=== PATIENT | female | born 1955 | race Asian ===

== ENCOUNTER 2017-06-23 12:51 | Emergency (ER) | payer OTHER ==
--- NOTE | 2017-06-23 14:40 | RAD ---
Indication: LEFT shoulder pain and decreased range of motion since yesterday. Comparison: No relevant prior exams available on the [facility] PACS for comparison. Technique: Internal and external rotation AP and scapular Y views LEFT shoulder Report: Normal acromioclavicular and glenohumeral joint alignment. No significant glenohumeral or acromioclavicular joint arthropathic change evident. Negative for fracture. Negative for stigmata of calcific tendinopathy. Unremarkable soft tissue contours. IMPRESSION: Negative exam.
--- NOTE | 2017-06-23 14:42 | RAD ---
Indication: LEFT shoulder pain radiating to the elbow. Comparison: No relevant prior exams available on the [facility] for comparison. Technique: AP, open-mouth odontoid, lateral, and oblique views cervical spine. Report: Straightening relative to normal cervical lordosis. Negative for subluxation at any level. Negative for fracture. Minimal vertebral endplate osteophytosis at C4-C5 through C6-C7 without significant disc space narrowing. The oblique views are negative for osseous foraminal stenosis. Unremarkable prevertebral soft tissue contours. IMPRESSION: Straightening relative to normal cervical lordosis and minimal multilevel degenerative spondylosis.
--- NOTE | 2017-06-23 15:06 | UC ---
Upper Extremity HPI - HPI Summary HPI Summary: Patient presents with an unremarkable past medical history. She presents today with complaints of non-traumatic left shoulder and arm pain. She denies any new activity that would explain the shoulder pain. She states the pain started yesterday. She states it hurts from the top of the shoulder and radiates to the elbow. The pain is worse with movement, and improves if she raises it and moves it in a tulalip. She denies any numbness or tingling. She denies any chest pain, dyspena, sweating, nausea, weakness, or fatigue. She denies any heart problems. - History of Current Complaint Chief Complaint: EDExtremityUpper Stated Complaint: SHOULDER AND ARM PAIN Time Seen by Provider: 06/23/17 14:01 Hx Obtained From: Patient, Family/Distribution Associate ?: No Onset/Duration: Sudden Onset, Lasting Days Severity Initially: Moderate Severity Currently: Moderate Location Of Pain: Is Discrete @ Character: Dull, Aching Aggravating Factor(s): Movement, Lifting, Flexion, Extension, Internal/External Rotation Alleviating Factor(s): Other: - raising up and turning arm in tulalip. - Allergies/Home Medications Allergies/Adverse Reactions: Allergies Allergy/AdvReac Type Severity Reaction Status Date / Time No Known Allergies Allergy Verified 06/23/17 13:27 PMH/Surg Hx/FS Hx/Imm Hx Previously Healthy: Yes - Surgical History Surgical History: Yes Surgery Procedure, Year, and Place: cholecystectomy - Family History Known Family History: Positive: None - Social History Occupation: Employed Full-time Lives: Alone Alcohol Use: Occasionally Substance Use Type: None Smoking Status (MU): Current Every Day Smoker - Immunization History Most Recent Influenza Vaccination: fall 2016 Review of Systems Constitutional: Negative Skin: Negative Eyes: Negative ENT: Negative Respiratory: Negative Cardiovascular: Negative Gastrointestinal: Negative Genitourinary: Negative Motor: Negative Neurovascular: Negative Musculoskeletal: Decreased ROM, Edema, Myalgia All Other Systems Reviewed And Are Negative: Yes Physical Exam Triage Information Reviewed: Yes Appearance: Well-Appearing Vital Signs: Initial Vital Signs Temp 36.6 F 06/23/17 13:17 Pulse 70 06/23/17 13:17 Resp 18 06/23/17 13:17 Pulse Ox 100 06/23/17 13:17 Eye Exam: Normal ENT Exam: Normal Neck exam: Normal Neck: Positive: 1 Respiratory Exam: Normal Cardiovascular Exam: Normal Abdominal Exam: Normal Musculoskeletal Exam: Normal, Other Musculoskeletal: Positive: Other: - right shouler inspection, no areas of eccymosis, erythema, or edema. palaption, tenderness to palpation over the anterior aspect, deltoid, and elbow. ROM, intact in all planes. Vasc palpable radial and ulnar, cap refill less chelsie three seconds. neuro, no deficits to touch distally Neurological Exam: Normal Psychological Exam: Normal Skin Exam: Normal Upper Extremity Course/Dx - Course Course Of Treatment: Patient presents with left shoulder pain that radiates down the arm to the elbow that is totally reproducible on palpation, and with movement. Xrays of the cerival spine and left shoulder were obtained and read as negative. I feel her symtpoms are consistent with cervial radicualopathy and recommend advil 200 mg three times daily, and follow up with orthopedists. She denies any cardiac symtpoms, had normal vital signs, and was aferile. - Differential Dx/Diagnosis Differential Diagnosis/HQI/PQRI: Other - cervical radiculopathy Provider Diagnoses: cervical radiculopathy Discharge - Discharge Plan Condition: Stable Disposition: HOME Prescriptions: Ibuprofen [Ibuprofen 200] 200 mg PO TID PRN #20 tab PRN Reason: shoudler pain Patient Education Materials: Cervical Radiculopathy (ED), Shoulder Pain (ED) Referrals: Valerie Crawford MD [Medical Doctor] - Ira Shoemaker MD [Primary Care Provider] -
== END 2017-06-23 15:00 | disposition home or self-care (01) ==
LOC: UCEAST 12:51
DX: M54.12 Radiculopathy, cervical region (principal); Z72.0 Tobacco use
CPT/HCPCS: 72050; 99212; G0463

== ENCOUNTER 2017-07-01 09:08 | Emergency (ER) | payer OTHER ==
[2017-07-01] MEDS ORDERED: HYDROcodone/ACETAMIN 5-325 MG* 1 TAB PO ONE (10:21)
[2017-07-01] MEDS ORDERED: Ibuprofen TAB* 600 MG PO ONE (10:21)
--- NOTE | 2017-07-01 10:39 | RAD ---
INDICATION: Right knee injury. TECHNIQUE: 4 views of the right knee were obtained. FINDINGS: The bones are in normal alignment. No joint effusion or fracture is seen. Joint spaces appear maintained. IMPRESSION: NO EVIDENCE FOR FRACTURE.
--- NOTE | 2017-07-01 10:41 | RAD ---
INDICATION: Right femur injury. TECHNIQUE: 2 views of the right femur were obtained. FINDINGS: The bones are normal alignment. No fracture is seen. IMPRESSION: NO EVIDENCE FOR FRACTURE.
[2017-07-01] MEDS ORDERED: fentaNYL* 50 MCG/ML 2 ML VIAL (100 MCG VIAL) ONE (12:37)
[2017-07-01 13:04] VITALS: BP 134/79
--- NOTE | 2017-07-02 15:00 | ED ---
Og Palacios Nilda, scribed for Lizandro Ordoñez MD on 07/01/17 at 0941 . Lower Extremity - HPI Summary HPI Summary: This patient is a 61 year old F presenting to [facility] accompanied by daughter with a chief complaint of constant RLE pain (upper thigh) and right knee ecchymosis and abrasion s/p falling yesterday at 1900. Per daughter, pt was in the middle of getting into a car when the car moved and she fell, landing on her right knee. The patient rates the pain 10/10 in severity. Symptoms aggravated by weight bearing and alleviated by rest. Daughter states pt took Tylenol last night which did not alleviate the pain. Per daughter, patient reports that she cannot bear weight on this leg but denies hip pain. Daughter states patient is not on medications. PMHx chronic back and knee pain. PSHx cholecystectomy. SHx smoking, occasional ETOH, no drugs. This patient cannot speak Macedonian, though daughter is serving as corporate consultant. - History of Current Complaint Chief Complaint: EDExtremityLower Stated Complaint: FALL , RIGHT LEG PAIN Time Seen by Provider: 07/01/17 09:21 Hx Obtained From: Family/Commercial Lender - daughter Mechanism Of Injury: Fall From A Standing Position Onset/Duration: Still Present Severity Currently: Severe Pain Intensity: 10 Pain Scale Used: 0-10 Numeric Timing: Constant Location: Is Discrete @ - right upper thigh and right knee Associated Signs And Symptoms: Positive: Bruising, Knee Pain, Other - abrasion on knee Aggravating Factor(s): Weight Bearing Alleviating Factor(s): Nothing Able to Bear Weight: No - Allergies/Home Medications Allergies/Adverse Reactions: Allergies Allergy/AdvReac Type Severity Reaction Status Date / Time No Known Allergies Allergy Verified 06/23/17 13:27 Home Medications: Home Medications Acetaminophen TAB* [Tylenol TAB*] 650 mg PO .ONCE PRN 07/01/17 [History Confirmed 07/01/17] PMH/Surg Hx/FS Hx/Imm Hx Musculoskeletal History: Reports: Other Musculoskeletal History - chronic back and knee pain Sensory History: Denies: Hx Legally Blind EENT History: Denies: Hx Deafness - Surgical History Surgery Procedure, Year, and Place: cholecystectomy Infectious Disease History: No Infectious Disease History: Denies: Traveled Outside the [place] in Last 30 Days - Family History Known Family History: Negative: Hypertension, Diabetes - Social History Alcohol Use: Occasionally Substance Use Type: Reports: None Smoking Status (MU): Current Every Day Smoker Review of Systems Positive: Other - right thigh pain, inability to bear weight on RLE; negative hip pain Positive: Bruising - right knee, Other - abrasion on right knee All Other Systems Reviewed And Are Negative: Yes Physical Exam - Summary Physical Exam Summary: VITAL SIGNS: Reviewed. GENERAL: Patient is a well-developed and nourished female who is lying comfortable in the stretcher. Patient is not in any acute respiratory distress. HEAD AND FACE: No signs of trauma. No ecchymosis, hematomas or skull depressions. No sinus tenderness. EYES: PERRLA, EOMI x 2, No injected conjunctiva, no nystagmus. EARS: Hearing grossly intact. Ear canals and tympanic membranes are within normal limits. MOUTH: Oropharynx within normal limits. NECK: Supple, trachea is midline, no adenopathy, no JVD, no carotid bruit, no c- spine tenderness, neck with full ROM. CHEST: Symmetric, no tenderness at palpation LUNGS: Clear to auscultation bilaterally. No wheezing or crackles. CVS: Regular rate and rhythm, S1 and S2 present, no murmurs or gallops appreciated. ABDOMEN: Soft, non-tender. No signs of distention. No rebound no guarding, and no masses palpated. Bowel sounds are normal. EXTREMITIES: no edema, no cyanosis or clubbing. Abrasion and ecchymosis in right knee with limited ROM in distal femur. NEURO: Alert and oriented x 3. No acute neurological deficits. Speech is normal and follows commands. SKIN: Dry and warm Triage Information Reviewed: Yes Vital Signs On Initial Exam: Initial Vitals Temp Pulse Resp BP Pulse Ox 97.4 F 81 15 142/73 97 07/01/17 09:10 07/01/17 09:10 07/01/17 09:10 07/01/17 09:10 07/01/17 09:10 Vital Signs Reviewed: Yes Diagnostics - Vital Signs Vital Signs Temp Pulse Resp BP Pulse Ox 07/01/17 09:10 97.4 F 81 15 142/73 97 - Laboratory Lab Statement: Any lab studies that have been ordered have been reviewed, and results considered in the medical decision making process. - Radiology Right femur XR Radiology Interpretation Completed By: Radiologist - Right femur XR, per radiologist, reveals no evidence for fracture. ED physician has reviewed this radiology report and agrees. Right knee XR Radiology Interpretation Completed By: Radiologist - Right knee XR, per radiologist, reveals no evidence for fracture. ED physician has reviewed this radiology report and agrees. Lower Extremity Course/Dx - Course Assessment/Plan: This patient is a 61 year old F presenting to [facility] accompanied by daughter with a chief complaint of constant RLE pain (upper thigh ) and right knee ecchymosis and abrasion s/p falling yesterday at 1900. Per daughter, pt was in the middle of getting into a car when the car moved and she fell, landing on her right knee. The patient rates the pain 10/10 in severity. Symptoms aggravated by weight bearing and alleviated by rest. Daughter states pt took Tylenol last night which did not alleviate the pain. Per daughter, patient reports that she cannot bear weight on this leg but denies hip pain. Daughter states patient is not on medications. PMHx chronic back and knee pain. PSHx cholecystectomy. SHx smoking, occasional ETOH, no drugs. This patient cannot speak Macedonian, though daughter is serving as corporate consultant. Pending right femur xray and right knee xray. Right femur XR, per radiologist, reveals no evidence for fracture. Right knee XR, per radiologist, reveals no evidence for fracture. ED physician has reviewed these radiology reports and agrees. In the ED course, the patient was given Ezel and Motrin. The pt is hemodynamically stable, alert and oriented x3. Pt is stable and will be D/C home with prescription for Ezel and Motrin and a Dx of leg pain, knee pain, and leg contusion. Pt and daughter understand and are agreeable with this plan. - Diagnoses Differential Diagnosis/HQI/PQRI: Positive: Bursitis, Cellulitis, Fracture ( Closed), Sprain, Strain Provider Diagnoses: Musculoskeletal pain Discharge - Discharge Plan Condition: Stable Disposition: HOME Prescriptions: HYDROcodone/ACETAMIN 5-325 MG* [Ezel 5-325 TAB*] 1 tab PO Q6H PRN #10 tab MDD 4 PRN Reason: Pain Ibuprofen TAB* [Motrin TAB* 600 MG] 600 mg PO Q8H PRN #20 tab PRN Reason: Pain Patient Education Materials: Knee Pain (ED), Leg Pain (ED) Referrals: Ira Shoemaker MD [Primary Care Provider] - 1 Week Additional Instructions: RETURN TO THE EMERGENCY DEPARTMENT FOR CHANGING OR WORSENING SYMPTOMS. The documentation as recorded by the Og bourne Nilda accurately reflects the service I personally performed and the decisions made by , Lizandro Ordoñez MD.
== END 2017-07-01 13:04 | disposition home or self-care (01) ==
LOC: ED 09:08
DX: M79.651 Pain in right thigh (principal); W19.XXXA Unspecified fall, initial encounter; Y93.89 Activity, other specified; Y92.9 Unspecified place or not applicable; M54.9 Dorsalgia, unspecified; G89.29 Other chronic pain; V48.4XXA Person boarding or alighting a car injured in noncollision transport accident, initial encounter
CPT/HCPCS: 96372; 99283; A9270-GY; J3010

== ENCOUNTER 2019-01-05 14:18 | Emergency (ER) | payer OTHER ==
[2019-01-05] MEDS ORDERED: Lidocaine 2% VISCOUS* 15 ML UDC PO ONE (17:10)
[2019-01-05] MEDS ORDERED: Al Hydrox/Mg Hydrox/Simet LIQ* 30 ML UDC PO ONE (17:10)
--- NOTE | 2019-01-05 17:19 | ED ---
GI/ HPI - HPI Summary HPI Summary: This pt is a 63 y/o female presenting to [facility] c/o burning sensation in the epigastric abd area. Pt does not speak Syriac and daughter is translating as iPad used for interpretation is not working. Pt reports she began to feel a burning sensation in the epigatric abd area on Monday (02/01). Pt denies any chest pain. Daughter notes pt has also been breathing fast and pt reports some SOB. Pt denies any nausea, vomiting, abd pain, diarrhea, constipation. Pt has taken Tylenol for her symptoms with mild relief. Daughter notes pt has had this symptom in the past. Her last bowel movement was today. PMHx: HTN but does not take any medications for it. - History of Current Complaint Chief Complaint: EDShortnessOfBreath Time Seen by Provider: 01/05/19 17:00 Stated Complaint: "DIFFICULTY BREATHING PER DAUGHTER" Hx Obtained From: Patient Onset/Duration: Started Days Ago, Still Present Timing: Lasting Days Current Severity: Mild Pain Intensity: 3 Location of Pain: Epigastric Associated Signs and Symptoms: Negative: Nausea, Vomiting, Diarrhea, Fever, Abdominal Pain, Chest Pain, Other: - SOB Aggravating Factor(s): Nothing Alleviating Factor(s): Nothing - Allergy/Home Medications Allergies/Adverse Reactions: Allergies Allergy/AdvReac Type Severity Reaction Status Date / Time ibuprofen Allergy Bleeding Verified 01/05/19 14:30 PMH/Surg Hx/FS Hx/Imm Hx Musculoskeletal History: Reports: Other Musculoskeletal History - chronic back and knee pain Sensory History: Denies: Hx Legally Blind, Hx Deafness Opthamlomology History: Denies: Hx Legally Blind - Surgical History Surgery Procedure, Year, and Place: cholecystectomy Infectious Disease History: No Infectious Disease History: Denies: Traveled Outside the [place] in Last 30 Days - Family History Known Family History: Negative: Hypertension, Diabetes - Social History Alcohol Use: Occasionally Substance Use Type: Reports: None Smoking Status (MU): Current Every Day Smoker Review of Systems Negative: Fever Negative: Chest Pain Positive: Shortness Of Breath Gastrointestinal: Other - POS: burning sensation in abdomen Negative: Abdominal Pain, Vomiting, Diarrhea, Nausea, Other - constipation All Other Systems Reviewed And Are Negative: Yes Physical Exam - Summary Physical Exam Summary: VITAL SIGNS: Reviewed. GENERAL: Patient is a well-developed and nourished female who is lying comfortable in the stretcher. Patient is not in any acute respiratory distress. HEAD AND FACE: No signs of trauma. No ecchymosis, hematomas or skull depressions. No sinus tenderness. EYES: PERRLA, EOMI x 2, No injected conjunctiva, no nystagmus. EARS: Hearing grossly intact. Ear canals and tympanic membranes are within normal limits. MOUTH: Oropharynx within normal limits. NECK: Supple, trachea is midline, no adenopathy, no JVD, no carotid bruit, no c- spine tenderness, neck with full ROM. CHEST: Symmetric, no tenderness at palpation LUNGS: Clear to auscultation bilaterally. No wheezing or crackles. CVS: Regular rate and rhythm, S1 and S2 present, no murmurs or gallops appreciated. ABDOMEN: Soft, non-tender. No signs of distention. No rebound no guarding, and no masses palpated. Bowel sounds are normal. EXTREMITIES: FROM in all major joints, no edema, no cyanosis or clubbing. NEURO: Alert and oriented x 3. No acute neurological deficits. Speech is normal and follows commands. SKIN: Dry and warm Triage Information Reviewed: Yes Vital Signs On Initial Exam: Initial Vitals Temp Pulse Resp BP Pulse Ox 98.4 F 76 16 199/110 98 01/05/19 14:24 01/05/19 14:24 01/05/19 14:24 01/05/19 14:24 01/05/19 14:24 Vital Signs Reviewed: Yes Diagnostics - Vital Signs Vital Signs Temp Pulse Resp BP Pulse Ox 01/05/19 15:36 98.4 F 77 18 183/103 96 01/05/19 14:24 98.4 F 76 16 199/110 98 - Laboratory Result Diagrams: 01/05/19 17:28 01/05/19 17:28 Lab Statement: Any lab studies that have been ordered have been reviewed, and results considered in the medical decision making process. - Radiology Abdomen XR Radiology Interpretation Completed By: Radiologist Summary of Radiographic Findings: IMPRESSION: 1. There is no radiographically apparent acute abnormality of the gastrointestinal tract. 2. Incidentally noted is coarse atherosclerotic calcification of the left worse than right iliac arteries. Please correlate to signs and symptoms of pelvic and lower extremity arterial insuffiency. Dr. Ordoñez has reviewed this report. - EKG 17:18 Cardiac Rate: NL - at 76 bpm EKG Rhythm: Sinus Rhythm Summary of EKG Findings: No ST elevations. Re-Evaluation - Re-Evaluation First Eval Re-Evaluation Time: 18:30 Comment: Reviewed lab and XR results with the pt and daughter. Pt is feeling better. Pt will be discharged home. GIGU Course/Dx - Course Assessment/Plan: This pt is a 63 y/o female presenting to [facility] c/o burning sensation in the epigastric abd area. Pt does not speak Syriac and daughter is translating as iPad used for interpretation is not working. Pt reports she began to feel a burning sensation in the epigatric abd area on Monday (02/01). Pt denies any chest pain. Daughter notes pt has also been breathing fast and pt reports some SOB. Pt denies any nausea, vomiting, abd pain, diarrhea, constipation. Pt has taken Tylenol for her symptoms with mild relief. Daughter notes pt has had this symptom in the past. Her last bowel movement was today. PMHx: HTN but does not take any medications for it. EKG is a normal sinus rhythm. Blood test results without any significant abnormality. Troponin is 0.00. Abdomen x-ray impression: There is no really graphic And acute abnormality of the GI tract. Incidental findings there is atherosclerotic calcifications left worse than the right iliac arteries. Correlate signs and symptoms for pelvic and lower extremity arterial insufficiency. Patient and patient's daughter were notified about the findings and the need to follow-up with the primary care physician. They understand and agree. The patient was given a GI cocktail and the symptoms improved. Therefore I believe that the patient does not have any acute coronary syndrome. The heart to score is equal to 1. Therefore, no suspicion for an acute coronary syndrome. I discussed all the findings and test results with the patient. Patient was instructed to return to the emergency room immediately if any of the symptoms return or worsens. Plan of care was discussed with the patient and understands and agrees. All questions were answered at patient satisfaction. There were no further complaints or concerns. Lung exam before discharge: CTA B/L. Good air exchange. No wheezing or crackles heard. CVS: S1 and S2 present. No murmurs appreciated. Patient is alert and oriented x 3. Patient is hemodynamically stable. Patient will be discharged home with follow up from his PCP in the next 2-3 days. - Diagnoses Provider Diagnoses: Epigastric pain, GERD (gastroesophageal reflux disease), Atherosclerosis of both iliac arteries Discharge - Sign-Out/Discharge Documenting (check all that apply): Patient Departure - Discharge home Patient Received Moderate/Deep Sedation with Procedure: No - Discharge Plan Condition: Stable Disposition: HOME Prescriptions: Omeprazole CAP (NF) [Prilosec CAP* 20 MG] 20 mg PO DAILY #14 cap. Patient Education Materials: Gastroesophageal Reflux Disease (ED) Referrals: Ira Shoemaker MD [Primary Care Provider] - Additional Instructions: FOLLOW UP WITH YOUR PRIMARY CARE PROVIDER IN 2-3 DAYS. RETURN TO THE EMERGENCY DEPARTMENT FOR ANY WORSENING OR NEW SYMPTOMS - Billing Disposition and Condition Condition: STABLE Disposition: Home - Attestation Statements Document Initiated by Braxtonibtesha: Yes Documenting Braxtonibe: Mana Bell Provider For Whom Radha is Documenting (Include Credential): Lizandro Ordoñez MD Scribe Attestation: Mana Palacios, braxtonibed for Lizandro Ordoñez MD on 01/06/19 at 1838. Scribe Documentation Reviewed: Yes Provider Attestation: The documentation as recorded by the Mana bourne accurately reflects the service I personally performed and the decisions made by , Lizandro Ordoñez MD Status of Scribe Document: Viewed
[2019-01-05 17:36] LABS: ABS Basophils 0.1 10^3/ul (0-0.2); ABS Eosinophils 0.6 10^3/ul (0-0.6); ABS Lymphocytes 1.8 10^3/ul (1.0-4.8); ABS Monocytes 0.3 10^3/ul (0-0.8); ABS Neutrophils 3.1 10^3/ul (1.5-7.7); Eosinophil % 10.7 %; Hematocrit 44 % (35-47); Hemoglobin 14.2 g/dL (12.0-16.0); Lymphocyte % 30.4 %; Mean Corpuscular HGB Conc 32 g/dL (31-36); Mean Corpuscular Hemoglobin 30 pg (27-31); Mean Corpuscular Volume 93 fL (80-97); Mean Platelet Volume 8.1 fL (7.4-10.4); Nucleated Red Blood Cells % 0.1; Platelet Count 175 10^3/uL (150-450); Red Blood Count 4.69 10^6 /uL (3.70-4.87); Red Cell Distribution Width 15 % (10.5-15)
[2019-01-05 17:53] LABS: ALT 75 U/L (7-52); AST 61 U/L (13-39); Albumin 4.3 g/dL (3.2-5.2); Albumin/Globulin Ratio 1.2 (1-3); Alkaline Phosphatase 84 U/L (34-104); Anion Gap 6 mmol/L (2-11); BUN/Creatinine Ratio 9.2 (8-20); Blood Urea Nitrogen 8 mg/dL (6-24); C Reactive Protein < 1.00 mg/L (<8.01); CO2 Carbon Dioxide 30 mmol/L (22-32); Calcium 9.8 mg/dL (8.6-10.3); Chloride 104 mmol/L (101-111); EGFR African American 79.8 (>60); Globulin 3.6 g/dL (2-4); Glucose 115 mg/dL (70-100); Magnesium 2.2 mg/dL (1.9-2.7); Potassium 3.9 mmol/L (3.5-5.0); Sodium 140 mmol/L (135-145); Total Protein 7.9 g/dL (6.4-8.9)
[2019-01-05 17:57] LABS: Urine Appearance Clear; Urine Bacteria Absent (Absent); Urine Bilirubin Negative (Negative); Urine Blood 2+ (Negative); Urine Color Straw; Urine Glucose Negative (Negative); Urine Ketones Negative (Negative); Urine Nitrite Negative (Negative); Urine Protein Negative (Negative); Urine Red Blood Cell 1+(3-5/hpf) (Absent); Urine Specific Gravity 1.006 (1.010-1.030); Urine Squamous Epithelial Cell Present (Absent); Urine Urobilinogen Negative (Negative); Urine White Blood Cell Trace(0-5/hpf) (Absent)
[2019-01-05 18:51] VITALS: BP 170/108
== END 2019-01-05 18:49 | disposition home or self-care (01) ==
LOC: ED 14:18
DX: K21.9 Gastro-esophageal reflux disease without esophagitis (principal); F17.210 Nicotine dependence, cigarettes, uncomplicated; Z88.6 Allergy status to analgesic agent
CPT/HCPCS: 36415; 74019; 80053; 81003; 81015; 83605; 83690; 83735; 84484; 85025; 86140; 87086; 93005; 99284; A9270-GY